=== PATIENT | male | born 1965 | race African-American/Black ===

== ENCOUNTER 2023-01-18 20:10 | Emergency (ER) | payer SELFPAY ==
[~2023-01-18] VITALS: Ht 180.3 cm; Wt 90.0 kg
[2023-01-18 20:12] VITALS: BP 190/122
[2023-01-18] MEDS ORDERED: DIPHENHYDRAMINE 50MG/ML VIAL IM ONE (20:30)
[2023-01-18] MEDS ORDERED: HALOPERIDOL LACTATE 5MG/ML VIAL IM ONE (20:30)
[2023-01-18] MEDS ORDERED: LORAZEPAM 2MG/ML CPJ IM ONE (20:30)
[2023-01-19] MEDS ORDERED: AMLO5TAB4 MT (16:46)
== END 2023-01-18 20:44 | disposition left against medical advice (07) ==
LOC: ER 20:10
DX: G92.9 Unspecified toxic encephalopathy (principal)
CPT/HCPCS: 99283

== ENCOUNTER 2023-01-19 05:20 | Emergency (ER) | payer BC ==
[~2023-01-19] VITALS: Ht 177.8 cm; Wt 110.0 kg
[2023-01-19 09:10] LABS: BASOPHILS % 0.5 % (0.0-2.0); EOSINOPHILS % 0.5 % (0.0-5.0); HEMATOCRIT. 48.6 % (42.0-52.0); HEMOGLOBIN. 16.2 g/dL (14.0-18.0); LYMPHOCYTES % 12.5 % (20.0-50.0); MEAN CORPUSCULAR HEMOGLOBIN 27.6 pg (28.0-32.0); MEAN CORPUSCULAR VOLUME 82.6 fL (80.0-94.0); MEAN PLATELET VOLUME 8.4 fl (7.4-10.4); MONOCYTES % 8.1 % (2.0-8.0); NEUTROPHILS % 78.4 % (40.0-76.0); PLATELET 314 x1000/uL (130-400); RED BLOOD CELL COUNT 5.88 mill/uL (4.7-6.1); RED CELL DISTRIBUTION WIDTH 14.6 % (11.6-14.6)
[2023-01-19 09:15] LABS: CHLORIDE 105 mEq/L (98-107)
[2023-01-19 09:23] LABS: ETHANOL BLOOD < 10 mg/dL (-10)
[2023-01-19 09:30] VITALS: BP 142/87
[2023-01-19] MEDS ORDERED: AMLO5TAB4 MT (16:46)
== END 2023-01-19 09:51 | disposition home or self-care (01) ==
LOC: ER 05:20
DX: F19.10 Other psychoactive substance abuse, uncomplicated (principal)
CPT/HCPCS: 36415; 80053; 80320; 85025; 99284; G0480

== ENCOUNTER 2023-01-19 14:08 | Emergency (ER) | payer BC ==
[~2023-01-19] VITALS: Ht 180.3 cm; Wt 109.0 kg
[2023-01-19 14:11] VITALS: O2SAT 100
[2023-01-19] MEDS ORDERED: LORAZEPAM 2MG/ML CPJ IV STA (14:51)
[2023-01-19] MEDS ORDERED: SODIUM CHLORIDE 0.9% 1,000 ML IV ONE (15:00)
[2023-01-19] MEDS ORDERED: AMLODIPINE 5MG TABLET PO ONE (15:00)
[2023-01-19 15:54] LABS: BASOPHILS % 0.1 % (0.0-2.0); EOSINOPHILS % 0.1 % (0.0-5.0); HEMATOCRIT. 48.7 % (42.0-52.0); HEMOGLOBIN. 15.5 g/dL (14.0-18.0); LYMPHOCYTES % 14.2 % (20.0-50.0); MEAN CORPUSCULAR HEMOGLOBIN 26.9 pg (28.0-32.0); MEAN CORPUSCULAR HGB CONC 31.9 g/dL (31.0-37.0); MEAN CORPUSCULAR VOLUME 84.5 fL (80.0-94.0); MONOCYTES % 8.9 % (2.0-8.0); NEUTROPHILS % 76.7 % (40.0-76.0); PLATELET 288 x1000/uL (130-400); RED BLOOD CELL COUNT 5.76 mill/uL (4.7-6.1); RED CELL DISTRIBUTION WIDTH 14.9 % (11.6-14.6); WHITE BLOOD COUNT 17.9 x1000/uL (4.5-11.0)
[2023-01-19 15:56] LABS: CHLORIDE 108 mEq/L (98-107); INDEX HEMOLYSI 1 (1-3); INDEX ICTERIC 1 (1-4); INDEX LIPEMIC 1 (1-3); POTASSIUM 3.4 mEq/L (3.5-5.1); SODIUM 135 mEq/L (136-145)
[2023-01-19 16:04] LABS: ACETAMINOPHEN <2 ug/mL ug/mL (10-30); ALANINE AMINOTRANSFERASE 55 IU/L (13-61); ASPARTATE AMINOTRANSFERASE 49 IU/L (15-37); BILIRUBIN TOTAL 1.1 mg/dL (0.1-1.0); CALCIUM 9.8 mg/dL (8.5-10.1); CARBON DIOXIDE 24 mEq/L (21-32); CREATININE 1.2 mg/dL (0.6-1.3); ETHANOL BLOOD < 10 mg/dL (-10); GLUCOSE 87 mg/dL (70-105); PROTEIN TOTAL 7.9 g/dL (6.0-8.3); UREA NITROGEN BLOOD 18 mg/dL (7-21)
[2023-01-19] MEDS ORDERED: AMLO5TAB4 MT (16:46)
[2023-01-19 17:14] VITALS: BP 143/106; PULSE 79; RESP 16; TEMP 99
== END 2023-01-19 17:16 | disposition home or self-care (01) ==
LOC: ER 14:17
DX: I10 Essential (primary) hypertension (principal); F19.10 Other psychoactive substance abuse, uncomplicated; E78.00 Pure hypercholesterolemia, unspecified
CPT/HCPCS: 80053; 80307; 80329; 80320; 85025; 36415; 93005; 96361; 96374; 99285; J2060; Z7610 ×3; G0480